=== PATIENT | male | born 1990 | race Hispanic/Latino ===

== ENCOUNTER 2022-08-16 00:38 | Emergency (ER) | payer SELFPAY ==
[~2022-08-16] VITALS: Ht 180.3 cm; Wt 62.9 kg
--- OUTSIDE RECORDS SUMMARY | 2022-08-16 00:46 | XMS ---
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 - 2 Visits in 30 Days CARE PROVIDERS There are no care providers on record at this time. Tala has no Care Guidelines for this patient. Alondra VISIT COUNT (12 MO.) [address] TOTAL 3 NOTE: Visits indicate total known visits. ED/C VISIT TRACKING (12 MO.) 08[facility]16[facility]2022 00[facility]38 [facility] [place] [facility] [place] [facility] COMPLAINT: - BURNING CHEST, SHOULDER NUMBNESS 08/13/2022 11:22 [facility] TYPE: Emergency DIAGNOSES: - HEAD PAIN, LIGHT HEADED, - Cervicogenic headache 07/05/2022 21:17 [facility] TYPE: Emergency DIAGNOSES: - DEHYRDATION - Effect of heat and light, unspecified, initial encounter - Hypo-osmolality and hyponatremia - Dizziness and giddiness INPATIENT VISIT TRACKING (12 MO.) No inpatient visits to display in this time frame [email or web address]
[2022-08-16] MEDS ORDERED: IBU-200200 MG PO (00:59)
[2022-08-16] MEDS ORDERED: GABAPENTIN100 MG PO (00:59)
--- NOTE | 2022-08-17 19:57 | EKG ---
[facility] [address] [facility] [place] [address] Signed Normal sinus rhythm Rightward axis Borderline ECG No previous ECGs available Confirmed by Freddy Travis MD () on 08/17/2022 7:57:35 PM Electronically Signed By: FREDDY TRAVIS MD 08/17/221956 PATIENT NAME: JAC CALDWELL JR Electrocardiogram DATE OF : 89 PHYSICIAN: FREDDY TRAVIS MD REPORT #: [id number] REPORT IS CONFIDENTIAL AND NOT TO BE RELEASED WITHOUT AUTHORIZATION
== END 2022-08-16 02:52 | disposition home or self-care (01) ==
LOC: ED 00:38
DX: T14.8XXA Other injury of unspecified body region, initial encounter (principal); R07.89 Other chest pain; X58.XXXA Exposure to other specified factors, initial encounter
CPT/HCPCS: 36415; 71045; 80053; 81001; 84484; 85025; 85379; 93005; 93010; 96374; 96375; 99285-25; A9270; J2405